=== PATIENT | male | born 1960 | race Caucasian/White ===

== ENCOUNTER 2020-04-05 08:20 | Emergency (ER) | payer BC ==
[2020-04-05 09:12] LABS: HEMOGLOBIN 17.7 gm/dl (14.0-17.5); RED BLOOD COUNT 5.47 M/UL (4.20-5.50)
[2020-04-05 09:39] LABS: BUN/CREATININE RATIO 19 (0-10)
[2020-04-05] MEDS ORDERED: MOBIC15 MG PO (13:05)
[2020-04-05] MEDS ORDERED: CYCLOBENZAPRINE5 MG PO (13:05)
== END 2020-04-05 13:38 | disposition home or self-care (01) ==
LOC: ER1 08:20
PROVIDERS: Physician Assistant
DX: M50.323 Other cervical disc degeneration at C6-C7 level (principal); R07.89 Other chest pain; I87.2 Venous insufficiency (chronic) (peripheral); R60.0 Localized edema; I10 Essential (primary) hypertension; E11.9 Type 2 diabetes mellitus without complications; F17.200 Nicotine dependence, unspecified, uncomplicated; Z79.84 Long term (current) use of oral hypoglycemic drugs; Z87.19 Personal history of other diseases of the digestive system
CPT/HCPCS: 71045; 72040; 80053; 82550; 82553; 83874; 84484; 85025; 85379; 93005; 96374; 99285; J1885